=== PATIENT | male | born 1985 | race Caucasian/White ===

== ENCOUNTER 2019-10-28 10:25 | Emergency (ER) | payer BC ==
--- NOTE | 2019-10-28 10:54 | EDM.PDOC ---
ED HPI GENERAL MEDICAL PROBLEM - General Chief Complaint: General Stated Complaint: STEPPED ON NAIL Time Seen by Provider: 10/28/19 10:52 Source of Information: Reports: Patient History Limitations: Reports: No Limitations - History of Present Illness INITIAL COMMENTS - FREE TEXT/NARRATIVE: Previously healthy gentleman who stepped on a nail. This happened yesterday.Complains of moderate pain to the left foot. No fever., L foot Pain Score (Numeric/FACES): 2 - Related Data Allergies Allergy/AdvReac Type Severity Reaction Status Date / Time No Known Allergies Allergy Verified 10/28/19 10:35 Home Meds: Home Meds Escitalopram Oxalate [Lexapro] 10 mg PO DAILY 10/28/19 [History] Past Medical History Psychiatric History: Reports: Anxiety, Panic Attack Endocrine/Metabolic History: Reports: Obesity/BMI 30+ - Infectious Disease History Infectious Disease History: Reports: Chicken Pox - Past Surgical History HEENT Surgical History: Reports: Adenoidectomy, Oral Surgery, Tonsillectomy Social & Family History - Family History Family Medical History: Noncontributory - Tobacco Use Smoking Status *Q: Never Smoker - Caffeine Use Caffeine Use: Reports: None - Alcohol Use Days Per Week of Alcohol Use: 7 Number of Drinks Per Day: 6 Total Drinks Per Week: 42 - Recreational Drug Use Recreational Drug Use: Yes Recreational Drug Type: Reports: Marijuana/Hashish Other Recreational Drug Type: twice a week Recreational Drug Use Frequency: Weekly ED ROS GENERAL - Review of Systems Review Of Systems: Comprehensive ROS is negative, except as noted in HPI. ED EXAM, GENERAL - Physical Exam Exam: See Below Exam Limited By: Altered Mental Status General Appearance: Alert, WD/WN Ears: Normal External Exam Extremities: Normal Inspection, Other (Puncture wound noted.) Course - Vital Signs Last Recorded V/S: Last Vital Signs Temp 97.9 F 10/28/19 10:31 Pulse 80 10/28/19 10:31 Resp 18 10/28/19 10:31 BP 167/82 H 10/28/19 10:31 Pulse Ox 98 10/28/19 10:31 Departure - Departure Time of Disposition: 10:53 Disposition: Home, Self-Care 01 Condition: Good Clinical Impression: Puncture wound - Discharge Information Referrals: Manuel Hodges PA-C [Primary Care Provider] - Sepsis Event Note - Evaluation Sepsis Screening Result: No Definite Risk - Focused Exam Vital Signs: Vital Signs Temp Pulse Resp BP Pulse Ox 10/28/19 10:31 97.9 F 80 18 167/82 H 98 Date Exam was Performed: 10/28/19 Time Exam was Performed: 10:52 - Problem List & Annotations (1) Puncture wound SNOMED Code(s): 360812055 Code(s): T14.8XXA - OTHER INJURY OF UNSPECIFIED BODY REGION, INITIAL ENCOUNTER Status: Acute - Problem List Review Problem List Initiated/Reviewed/Updated: Yes - Assessment/Plan Plan: Tdap.Cephalexin.
[2019-10-28] MEDS ORDERED: Diphtheria,Pertussis(Acell),Tetanus Vaccine 0.5 ML SDV IM ONE (10:58)
== END 2019-10-28 11:09 | disposition home or self-care (01) ==
LOC: FB.ED 10:25
DX: S91.332A Puncture wound without foreign body, left foot, initial encounter (principal); F41.0 Panic disorder [episodic paroxysmal anxiety]; E66.9 Obesity, unspecified; Z68.35 Body mass index [BMI] 35.0-35.9, adult; Z79.899 Other long term (current) drug therapy; Z23 Encounter for immunization; W45.0XXA Nail entering through skin, initial encounter
CPT/HCPCS: 90471; 90715; 99283